=== PATIENT | female | born 1975 | race Caucasian/White ===

== ENCOUNTER 2017-03-07 19:54 | Emergency (ER) | payer BC ==
[2017-03-07] MEDS ORDERED: HYDROmorphone 0.5 MG/0.5 ML Syringe IVPUSH ONE (20:23)
[2017-03-07] MEDS ORDERED: Ondansetron 4 MG/2 ML SDV IVPUSH ONE (20:23)
[2017-03-07] MEDS ORDERED: Sodium Chloride 0.9% 1,000 ML IV SCH ×2 (20:30→22:00)
--- NOTE | 2017-03-07 20:41 | EDM.PDOC ---
ED HPI GENERAL MEDICAL PROBLEM - General Chief Complaint: Abdominal Pain Stated Complaint: ABDOMINAL PAIN Time Seen by Provider: 03/07/17 20:15 Source of Information: Reports: Patient, Family History Limitations: Reports: No Limitations - History of Present Illness INITIAL COMMENTS - FREE TEXT/NARRATIVE: 41-year-old female with abdominal pain for the past 4-1/2 to 5 hours. She had a Redd-en-Y surgery 5 years ago, has done well and felt fine until she developed gas pains around 3 PM this afternoon after having some coffee. She had a normal noon meal and had two bowel movements this morning. No fevers or chills, no significant nausea or vomiting and she has had no bowel movement since the pain started but has had some flatulence. She feels like her abdomen is becoming full or bloated. The pain is becoming very intense in her lower abdomen and more to the left, no radiation to the back. Onset: Gradual Duration: Hour(s): (Pain has been ongoing for 5 hours and worsening) Location: Reports: Abdomen Severity: Moderate Improves with: Reports: None Worsens with: Reports: Movement Associated Symptoms: Reports: No Other Symptoms abd pain Pain Score (Numeric/FACES): 8 - Related Data Allergies Allergy/AdvReac Type Severity Reaction Status Date / Time Penicillins Allergy Rash Verified 10/14/13 06:28 Home Meds: Home Meds Albuterol Sulfate [Albuterol Sulfate HFA] 2 puff IH Q6HR PRN 10/13/13 [History] EPINEPHrine [Epipen 2-Otis] 0.3 mg IM ASDIRECTED PRN 10/13/13 [History] Fluticasone Propionate [Flonase] 2 sprays NS BID 10/13/13 [History] Fluticasone/Salmeterol [Advair 250-50] 1 puff INH BID 10/13/13 [History] Montelukast Sodium 10 mg PO DAILY 10/13/13 [History] Acarbose [Precose] 25 mg PO TIDMEALS 03/07/17 [History] Cholecalciferol (Vitamin D3) [Vitamin D3] 5,000 unit PO DAILY 03/07/17 [History] Cyanocobalamin (Vitamin B-12) [Vitamin B-12] 1,000 mcg SL DAILY 03/07/17 [ History] FLUoxetine [PROzac] 40 mg PO DAILY 03/07/17 [History] Levothyroxine Sodium [Synthroid] 175 mcg PO BEDTIME 03/07/17 [History] Pediatric Multivit Comb No.136 [Children Multivitamin] 1 each PO BID 03/07/17 [ History] Vitamin B Complex [B Complex] 1 each PO DAILY 03/07/17 [History] buPROPion [Wellbutrin] 75 mg PO BID 03/07/17 [History] clonazePAM [Klonopin] 0.5 mg PO BID PRN 03/07/17 [History] Past Medical History HEENT History: Reports: Allergic Rhinitis 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: Psychiatric History: Reports: Anxiety, Depression Endocrine/Metabolic History: Reports: Hypothyroidism Oncologic (Cancer) History: Reports: Malignant Melanoma Dermatologic History: Reports: Psoriasis - Infectious Disease History Infectious Disease History: Reports: Chicken Pox, Shingles - Past Surgical History GI Surgical History: Reports: Bariatric Procedure Other GI Surgeries/Procedures: RNY ?2011 Female Surgical History: Reports: Section Social & Family History - Family History Family Medical History: Noncontributory - Tobacco Use Smoking Status *Q: Never Smoker Second Hand Smoke Exposure: No - Caffeine Use Caffeine Use: Reports: Coffee - Alcohol Use Days Per Week of Alcohol Use: 0 - Recreational Drug Use Recreational Drug Use: No ED ROS GENERAL - Review of Systems Review Of Systems: See Below Constitutional: Denies: Fever, Chills HEENT: Reports: No Symptoms Respiratory: Denies: Shortness of Breath, Cough Cardiovascular: Denies: Chest Pain GI/Abdominal: Reports: Abdominal Pain. Denies: Diarrhea, Nausea, Vomiting : Reports: No Symptoms Skin: Reports: No Symptoms Neurological: Reports: No Symptoms Psychiatric: Reports: Anxiety ED EXAM, GI/ABD - Physical Exam Exam: See Below Exam Limited By: No Limitations General Appearance: Alert, Anxious, Moderate Distress (Looks fairly uncomfortable) Eyes: Bilateral: Normal Appearance (No jaundice) Respiratory/Chest: No Respiratory Distress, Lungs Clear Cardiovascular: Regular Rate, Rhythm GI/Abdominal Exam: Normal Bowel Sounds, Soft, Tender (Very tender to palpation especially periumbilical and in the left lower quadrant, guarding is present with rebound tenderness) Extremities: Normal Inspection Neurological: Alert, Oriented Skin Exam: Warm, Dry Course - Vital Signs Last Recorded V/S: Last Vital Signs Temp 95.9 F 03/07/17 20:16 Pulse 66 03/07/17 21:16 Resp 18 03/07/17 21:16 BP 130/79 03/07/17 21:16 Pulse Ox 100 03/07/17 21:16 - Orders/Labs/Meds Orders: Active Orders 24 hr Category Date Time Status Abdomen Pelvis w Cont [CT] Stat Exams 03/07/17 21:08 Taken Labs: Laboratory Tests 03/07/17 03/07/17 Range/Units 20:37 20:37 WBC 6.3 (4.5-11.0) K/uL RBC 4.28 (3.30-5.50) M/uL Hgb 13.7 (12.0-15.0) g/dL Hct 39.4 (36.0-48.0) % MCV 92 (80-98) fL MCH 32 H (27-31) pg MCHC 35 (32-36) % Plt Count 244 (150-400) K/uL Neut % (Auto) 53 (36-66) % Lymph % (Auto) 37 (24-44) % Meagher % (Auto) 8 H (2-6) % Eos % (Auto) 1 L (2-4) % Baso % (Auto) 0 (0-1) % Sodium 138 L (140-148) mmol/L Potassium 3.5 L (3.6-5.2) mmol/L Chloride 102 (100-108) mmol/L Carbon Dioxide 26 (21-32) mmol/L Anion Gap 13.5 (5.0-14.0) mmol/L BUN 12 (7-18) mg/dL Creatinine 0.7 (0.6-1.0) mg/dL Est Cr Clr Drug Dosing 82.80 mL/min Estimated GFR (MDRD) > 60 (>60) Glucose 100 (74-106) mg/dL Calcium 9.3 (8.5-10.1) mg/dL Total Bilirubin 0.5 (0.2-1.0) mg/dL AST 33 (15-37) U/L ALT 61 (12-78) U/L Alkaline Phosphatase 109 (46-116) U/L Total Protein 6.7 (6.4-8.2) g/dL Albumin 3.8 (3.4-5.0) g/dL Globulin 2.9 (2.3-3.5) g/dL Albumin/Globulin Ratio 1.3 (1.2-2.2) Amylase 54 (25-115) U/L Meds: Medications Discontinued Medications Generic Name Dose Route Start Last Admin Trade Name Freq PRN Reason Stop Dose Admin Hydromorphone HCl 0.5 mg 03/07/17 20:23 03/07/17 20:31 Dilaudid IVPUSH 03/07/17 20:24 0.5 mg ONETIME ONE Administration Sodium Chloride 1,000 mls @ 1,000 mls/hr 03/07/17 20:30 03/07/17 20:31 Normal Saline IV 1,000 mls/hr ASDIRECTED MATTY Administration Sodium Chloride 80 mls @ 3 mls/sec 03/07/17 21:30 03/07/17 21:31 Normal Saline IV 3 mls/sec ASDIRECTED MATTY Administration Sodium Chloride 1,000 mls @ 500 mls/hr 03/07/17 22:00 03/07/17 21:59 Normal Saline IV 500 mls/hr ASDIRECTED MATTY Administration Iopamidol 100 ml 03/07/17 21:30 03/07/17 21:31 Isovue-300 (61%) IV 100 ml . DIRECTED MATTY Administration Ondansetron HCl 4 mg 03/07/17 20:23 03/07/17 20:31 Zofran IVPUSH 03/07/17 20:24 4 mg ONETIME ONE Administration Sodium Chloride 10 ml 03/07/17 21:16 03/07/17 21:31 Saline Flush FLUSH 10 ml ASDIRECTED PRN Administration Keep Vein Open - Re-Assessments/Exams Free Text/Narrative Re-Assessment/Exam: 03/07/17 20:40 An IV was started and the patient was given 0.5 mg of IV Dilaudid along with 4 mg of IV Zofran. A flat and upright abdominal x-ray will be obtained as well as a CBC, CMP, amylase and lipase. She likely will need a CT scan with the possibility of a bowel obstruction developing. 03/07/17 22:15 CT scan revealed a large amount of colonic stool and gas but no obstruction or acute findings. Labs were all reassuring and after the IV Dilaudid and Zofran she was asymptomatic. 03/07/17 22:28 After an additional hour her symptoms did not recur. She'll be discharged home with the advice of taking stool softeners or MiraLAX, drinking lots of water and returning if symptoms recur. Departure - Departure Time of Disposition: 22:43 Disposition: Home, Self-Care 01 Condition: Good Clinical Impression: Abdominal gas pain - Discharge Information Instructions: Abdominal Pain, Adult, [id number] Referrals: Justina Fair PA [Primary Care Provider] - Forms: ED Department Discharge Care Plan Goals: Stick with clear liquids tonight, MiraLAX or stool softeners may help and increase diet as tolerated. Return if symptoms recur and are persistent or you develop other concerns. - My Orders Last 24 Hours: My Active Orders 03/07/17 21:08 Abdomen Pelvis w Cont [CT] Stat - Assessment/Plan Last 24 Hours: My Active Orders 03/07/17 21:08 Abdomen Pelvis w Cont [CT] Stat
[2017-03-07] MEDS ORDERED: Sodium Chloride 0.9% 10 ML Syringe FLUSH PRN (21:16)
[2017-03-07] MEDS ORDERED: Iopamidol 612 MG/ML 100 ML Bottle IV SCH (21:30)
[2017-03-07] MEDS ORDERED: Sodium Chloride 0.9% 80 ML IV SCH (21:30)
== END 2017-03-07 22:45 | disposition home or self-care (01) ==
LOC: JP.ED 19:54
DX: R14.1 Gas pain (principal); F32.9 Major depressive disorder, single episode, unspecified; E03.9 Hypothyroidism, unspecified; Z79.899 Other long term (current) drug therapy; Z88.0 Allergy status to penicillin
CPT/HCPCS: 36415; 74177; 80053; 82150; 85025; 96361; 96372; 96374; 99284; J1170; J2405; J7030; J7040; J7050; Q9967

== ENCOUNTER 2020-09-24 19:41 | Emergency (ER) | payer BC ==
--- NOTE | 2020-09-24 20:15 | EDM.PDOC ---
ED HPI GENERAL MEDICAL PROBLEM - General Chief Complaint: Abdominal Pain Stated Complaint: ABD PAIN Time Seen by Provider: 09/24/20 20:15 Source of Information: Reports: Patient, Family, RN Notes Reviewed History Limitations: Reports: No Limitations - History of Present Illness INITIAL COMMENTS - FREE TEXT/NARRATIVE: Sravani presents today with acute onset abdominal pain at 1800 today. She states she took dicyclomine as directed without any improvement in pain. She states she did have some belching but this caused a lot of pain in her abdomen. She reports to regular BMs this morning. Middle Abdomen Pain Score (Numeric/FACES): 7 - Related Data Allergies Allergy/AdvReac Type Severity Reaction Status Date / Time Penicillins Allergy Rash Verified 09/24/20 19:56 Home Meds: Home Meds Albuterol Sulfate [Albuterol Sulfate HFA] 2 puff IH Q6HR PRN 10/13/13 [History] EPINEPHrine [Epipen 2-Otis] 0.3 mg IM ASDIRECTED PRN 10/13/13 [History] Fluticasone Propionate [Flonase] 2 sprays NS BID 10/13/13 [History] Fluticasone/Salmeterol [Advair 250-50] 1 puff INH BID 10/13/13 [History] Montelukast Sodium 10 mg PO DAILY 10/13/13 [History] Cholecalciferol (Vitamin D3) [Vitamin D3] 5,000 unit PO DAILY 03/07/17 [History] Cyanocobalamin (Vitamin B-12) [Vitamin B-12] 1,000 mcg SL DAILY 03/07/17 [History] FLUoxetine [PROzac] 40 mg PO DAILY 03/07/17 [History] Levothyroxine Sodium [Synthroid] 175 mcg PO BEDTIME 03/07/17 [History] Pediatric Multivitamin No.136 [Children Multivitamin] 1 each PO BID 03/07/17 [History] Vitamin B Complex [B Complex] 1 each PO DAILY 03/07/17 [History] buPROPion [Wellbutrin] 75 mg PO BID 03/07/17 [History] clonazePAM [Klonopin] 0.5 mg PO BID PRN 03/07/17 [History] Black Cohosh 540 mg PO DAILY 09/24/20 [History] Dulaglutide [Trulicity] 0.75 mg SQ ASDIRECTED 09/24/20 [History] Zinc 50 mg PO DAILY 09/24/20 [History] Past Medical History HEENT History: Reports: Allergic Rhinitis 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: Psychiatric History: Reports: Anxiety, Depression Endocrine/Metabolic History: Reports: Hypothyroidism Oncologic (Cancer) History: Reports: Malignant Melanoma Dermatologic History: Reports: Psoriasis - Infectious Disease History Infectious Disease History: Reports: Chicken Pox, Shingles - Past Surgical History GI Surgical History: Reports: Bariatric Procedure Other GI Surgeries/Procedures: RNY ?2011 Female Surgical History: Reports: Section Social & Family History - Family History Family Medical History: No Pertinent Family History - Tobacco Use Tobacco Use Status *Q: Never Tobacco User - Caffeine Use Caffeine Use: Reports: Coffee - Recreational Drug Use Recreational Drug Use: No ED ROS GENERAL - Review of Systems Review Of Systems: See Below Constitutional: Reports: No Symptoms HEENT: Reports: No Symptoms Respiratory: Reports: No Symptoms Cardiovascular: Reports: No Symptoms Endocrine: Reports: No Symptoms GI/Abdominal: Reports: Abdominal Pain, Decreased Appetite. Denies: Black Stool, Bloody Stool, Constipation, Diarrhea, Difficulty Swallowing, Distension, Flatus, Hematemesis, Hematochezia, Nausea, Vomiting : Reports: No Symptoms Musculoskeletal: Reports: No Symptoms Skin: Reports: No Symptoms Neurological: Reports: No Symptoms Psychiatric: Reports: No Symptoms Hematologic/Lymphatic: Reports: No Symptoms Immunologic: Reports: No Symptoms ED EXAM, GI/ABD - Physical Exam Exam: See Below Exam Limited By: No Limitations General Appearance: Alert, WD/WN, Moderate Distress Eyes: Bilateral: Normal Appearance Ears: Normal External Exam, Normal Canal, Hearing Grossly Normal, Normal TMs Nose: Normal Inspection, Normal Mucosa, No Blood Throat/Mouth: Normal Inspection, Normal Lips, Normal Teeth, Normal Gums, Normal Oropharynx, Normal Voice, No Airway Compromise Head: Atraumatic, Normocephalic Neck: Normal Inspection, Supple, Non-Tender, Full Range of Motion. No: Lymphadenopathy (R), Lymphadenopathy (L) Respiratory/Chest: No Respiratory Distress, Lungs Clear, Normal Breath Sounds, No Accessory Muscle Use, Chest Non-Tender. No: Crackles, Rales, Rhonchi, Wheezing Cardiovascular: Normal Peripheral Pulses, Regular Rate, Rhythm, No Edema, No Gallop, No Murmur, No Rub GI/Abdominal Exam: Soft, No Distention, No Mass, Guarding, Rebound, Tender. No: Rigid, Hernia Back Exam: Normal Inspection, Full Range of Motion. No: CVA Tenderness (R), CVA Tenderness (L) Extremities: Normal Inspection, Normal Range of Motion, Non-Tender, No Pedal Edema, Normal Capillary Refill Neurological: Alert, Oriented, Normal Cognition, Normal Gait, No Motor/Sensory Deficits Psychiatric: Normal Affect, Normal Mood Skin Exam: Warm, Dry, Intact, Normal Color, No Rash Lymphatic: No Adenopathy Course - Vital Signs Last Recorded V/S: Last Vital Signs Temp 36.2 C 09/24/20 20:06 Pulse 78 09/24/20 22:12 Resp 16 09/24/20 20:06 BP 96/59 L 09/24/20 22:12 Pulse Ox 98 09/24/20 22:12 - Orders/Labs/Meds Orders: Active Orders 24 hr Category Date Time Status Iopamidol [Isovue-300 (61%)] Med 09/24/20 21:00 Active 100 ml IV . DIRECTED Sodium Chloride 0.9% [Normal Saline] 1,000 ml Med 09/24/20 20:30 Active IV ASDIRECTED Sodium Chloride 0.9% [Normal Saline] 80 ml Med 09/24/20 21:00 Active IV ASDIRECTED Sodium Chloride 0.9% [Saline Flush] Med 09/24/20 20:25 Active 10 ml FLUSH ASDIRECTED PRN Saline Lock Insert [OM.PC] Routine Oth 09/24/20 20:25 Ordered Medication Orders Sodium Chloride (Normal Saline) 1,000 mls @ 500 mls/hr IV ASDIRECTED [facility] Last Admin: 09/24/20 20:35 Dose: 500 mls/hr Documented by: BLANCHE Sodium Chloride (Normal Saline) 80 mls @ 3 mls/sec IV ASDIRECTED MATTY Last Admin: 09/24/20 21:02 Dose: 3 mls/sec Documented by: HALEIGH Iopamidol (Iopamidol 612 Mg/Ml 100 Ml Bottle) 100 ml IV . DIRECTED MATTY Last Admin: 09/24/20 21:02 Dose: 100 ml Documented by: HALEIGH Sodium Chloride (Sodium Chloride 0.9% 10 Ml Syringe) 10 ml FLUSH ASDIRECTED PRN PRN Reason: Keep Vein Open Last Admin: 09/24/20 20:35 Dose: 10 ml Documented by: BLANCHE Labs: Laboratory Tests 09/24/20 09/24/20 09/24/20 Range/Units 20:25 20:25 20:25 WBC 5.6 (4.5-11.0) K/uL RBC 4.12 (3.30-5.50) M/uL Hgb 13.2 (12.0-15.0) g/dL Hct 38.8 (36.0-48.0) % MCV 94 (80-98) fL MCH 32 H (27-31) pg MCHC 34 (32-36) % Plt Count 238 (150-400) K/uL Neut % (Auto) 39.9 (36-66) % Lymph % (Auto) 49.1 H (24-44) % Mcminn % (Auto) 8.3 H (2-6) % Eos % (Auto) 2.3 (2-4) % Baso % (Auto) 0.4 (0-1) % Sodium 141 (140-148) mmol/L Potassium 4.0 (3.6-5.2) mmol/L Chloride 102 (100-108) mmol/L Carbon Dioxide 29 (21-32) mmol/L Anion Gap 10.3 (5.0-14.0) mmol/L BUN 20 H D (7-18) mg/dL Creatinine 0.8 (0.6-1.0) mg/dL Est Cr Clr Drug Dosing 70.24 mL/min Estimated GFR (MDRD) > 60 (>60) Glucose 88 (74-106) mg/dL Calcium 9.1 (8.5-10.1) mg/dL Total Bilirubin 0.2 D (0.2-1.0) mg/dL AST 42 H (15-37) U/L ALT 81 H (12-78) U/L Alkaline Phosphatase 128 H (46-116) U/L Total Protein 6.4 (6.4-8.2) g/dL Albumin 3.8 (3.4-5.0) g/dL Globulin 2.6 (2.3-3.5) g/dL Albumin/Globulin Ratio 1.5 (1.2-2.2) Urine Color Yellow (YELLOW) Urine Appearance Clear (CLEAR) Urine pH 7.5 (5.0-8.0) Ur Specific Stephens 1.025 (1.008-1.030) Urine Protein Negative (NEGATIVE) mg/dL Urine Glucose (UA) Negative (NEGATIVE) mg/dL Urine Ketones Trace H (NEGATIVE) mg/dL Urine Occult Blood Negative (NEGATIVE) Urine Nitrite Negative (NEGATIVE) Urine Bilirubin Negative (NEGATIVE) Urine Urobilinogen 0.2 (0.2-1.0) EU/dL Ur Leukocyte Esterase Negative (NEGATIVE) Urine RBC Not seen (0-5) Urine WBC 0-5 (0-5) Ur Epithelial Cells Rare Amorphous Sediment Not seen Urine Bacteria Few Urine Mucus Not seen Patient lab work reviewed, no acute findings, we will complete ABD/pelvis CT with IV contrast. Meds: Medications Generic Name Dose Route Start Last Admin Trade Name Jes PRN Reason Stop Dose Admin Sodium Chloride 1,000 mls @ 500 mls/hr 09/24/20 20:30 09/24/20 20:35 Normal Saline IV 500 mls/hr ASDIRECTED MATTY Administration Sodium Chloride 80 mls @ 3 mls/sec 09/24/20 21:00 09/24/20 21:02 Normal Saline IV 3 mls/sec ASDIRECTED MATTY Administration Iopamidol 100 ml 09/24/20 21:00 09/24/20 21:02 Iopamidol 612 Mg/Ml 100 Ml Bottle IV 100 ml . DIRECTED MATTY Administration Sodium Chloride 10 ml 09/24/20 20:25 09/24/20 20:35 Sodium Chloride 0.9% 10 Ml Syringe FLUSH 10 ml ASDIRECTED PRN Administration Keep Vein Open Discontinued Medications Generic Name Dose Route Start Last Admin Trade Name Jes PRN Reason Stop Dose Admin Hydromorphone HCl 0.5 mg 09/24/20 20:24 09/24/20 20:35 Hydromorphone 0.5 Mg/0.5 Ml Syringe IVPUSH 09/24/20 20:25 0.5 mg ONETIME ONE Administration Hydromorphone HCl 0.5 mg 09/24/20 20:25 09/24/20 22:04 Hydromorphone 0.5 Mg/0.5 Ml Syringe IVPUSH 09/24/20 20:26 Not Given ONETIME ONE Ondansetron HCl 4 mg 09/24/20 20:24 09/24/20 20:30 Ondansetron 4 Mg/2 Ml Sdv IVPUSH 09/24/20 20:25 4 mg ONETIME ONE Administration - Radiology Interpretation Free Text/Narrative:: CT of abdomen and pelvis with IV contrast shows: No acute intra-abdominal inflammatory process. Large amount of feces in the colon. IUD in uterus. Status post gastric bypass procedure. - Re-Assessments/Exams Free Text/Narrative Re-Assessment/Exam: 09/24/20 21:21 Patient resting on ER stretcher, reports pain is much better, no more cramping. CT results pending. 09/24/20 22:[address] results, patient currently denies pain. Advised to take stool softener to help with constipation. Follow up with primary as needed. Departure - Departure Time of Disposition: 22:17 Disposition: Home, Self-Care 01 Condition: Good Clinical Impression: Abdominal pain, Constipation - Discharge Information *PRESCRIPTION DRUG MONITORING PROGRAM REVIEWED*: Not Applicable *COPY OF PRESCRIPTION DRUG MONITORING REPORT IN PATIENT RIK: Not Applicable Instructions: Constipation, Adult, Abdominal Pain, Adult, [id number] Referrals: Justina Fair PA [Primary Care Provider] - Forms: ED Department Discharge Additional Instructions: You have been treated and evaluated for abdominal pain. Lab work does not show any acute process. CT of abdomen and pelvis with IV contrast shows: No acute intra-abdominal inflammatory process. Large amount of feces in the colon. IUD in uterus. Status post gastric bypass procedure. Stay hydrated Increase physical activity to help with constipation. May try stool softener to help with constipation. Continue dicyclomine as directed. Follow up with primary provider in 7 to 10 days for a recheck. Return for any worsening, issues or concerns Sepsis Event Note (ED) - Evaluation Sepsis Screening Result: No Definite Risk - Focused Exam Vital Signs: Vital Signs Temp Pulse Resp BP Pulse Ox 09/24/20 22:12 78 96/59 L 98 09/24/20 20:28 76 101/70 100 09/24/20 20:06 36.2 C 70 16 109/70 98 09/24/20 19:53 36.2 C 70 16 109/70 98 - My Orders Last 24 Hours: My Active Orders 09/24/20 20:25 Sodium Chloride 0.9% [Saline Flush] 10 ml FLUSH ASDIRECTED PRN Saline Lock Insert [OM.PC] Routine 09/24/20 20:30 Sodium Chloride 0.9% [Normal Saline] 1,000 ml IV ASDIRECTED 09/24/20 21:00 Iopamidol [Isovue-300 (61%)] 100 ml IV . DIRECTED Sodium Chloride 0.9% [Normal Saline] 80 ml IV ASDIRECTED - Assessment/Plan Last 24 Hours: My Active Orders 09/24/20 20:25 Sodium Chloride 0.9% [Saline Flush] 10 ml FLUSH ASDIRECTED PRN Saline Lock Insert [OM.PC] Routine 09/24/20 20:30 Sodium Chloride 0.9% [Normal Saline] 1,000 ml IV ASDIRECTED 09/24/20 21:00 Iopamidol [Isovue-300 (61%)] 100 ml IV . DIRECTED Sodium Chloride 0.9% [Normal Saline] 80 ml IV ASDIRECTED Assessment:: Abdominal pain Constipation Plan: Patient treated and evaluated for abdominal pain. Lab work does not show any acute process. CT of abdomen and pelvis with IV contrast shows: No acute intra-abdominal inflammatory process. Large amount of feces in the colon. IUD in uterus. Status post gastric bypass procedure. Stay hydrated Increase physical activity to help with constipation. May try stool softener to help with constipation. Continue dicyclomine as directed. Follow up with primary provider in 7 to 10 days for a recheck. Return for any worsening, issues or concerns
[2020-09-24] MEDS ORDERED: Ondansetron 4 MG/2 ML SDV IVPUSH ONE (20:24)
[2020-09-24] MEDS ORDERED: HYDROmorphone 0.5 MG/0.5 ML Syringe IVPUSH ONE ×2 (20:24→20:25)
[2020-09-24] MEDS ORDERED: Sodium Chloride 0.9% 10 ML Syringe FLUSH PRN (20:25)
[2020-09-24] MEDS ORDERED: Sodium Chloride 0.9% 1,000 ML IV SCH (20:30)
[2020-09-24] MEDS ORDERED: Iopamidol 612 MG/ML 100 ML Bottle IV SCH (21:00)
[2020-09-24] MEDS ORDERED: Sodium Chloride 0.9% 80 ML IV SCH (21:00)
--- NOTE | 2020-09-24 21:45 | CRLCT ---
For Patients: As a result of the Century Cures Act, medical imaging exams and procedure reports are released immediately into your electronic medical record. You may view this report before your referring provider. If you have questions, please contact your health care provider. INDICATION: Acute onset abdominal pain, history melanoma TECHNIQUE: CT abdomen and pelvis acquired with 100 cc Isovue-300 IV contrast. COMPARISON: March 07, 2017 FINDINGS: Lower chest: Unremarkable. Liver: Unremarkable. Spleen: Unremarkable. Pancreas: Unremarkable. Gallbladder and bile ducts: Unremarkable. Adrenal glands: Unremarkable. Kidneys: Unremarkable. GI tract: Status post gastric bypass procedure. Appendix is normal. Large amount of feces in the colon. Vascular structures: Unremarkable. Lymph nodes: Unremarkable. Miscellaneous: Unremarkable. No free air or significant free fluid. Pelvic Organs: IUD in the uterus. Bones: Unremarkable for age. IMPRESSION: No acute intra-abdominal inflammatory process identified. Large amount of feces in the colon. Status post gastric bypass procedure. IUD within the uterus. Please note that all CT scans at this facility use dose modulation, iterative reconstruction, and/or weight-based dosing when appropriate to reduce radiation dose to as low as reasonably achievable. Dictated by Raisa Stewart MD @ 09/24/2020 9:44:[address] Raisa Stewart @ Sep 24 2020 9:44PM
== END 2020-09-24 22:29 | disposition home or self-care (01) ==
LOC: JP.ED 19:41
DX: K59.00 Constipation, unspecified (principal); E03.9 Hypothyroidism, unspecified; Z79.899 Other long term (current) drug therapy; Z88.0 Allergy status to penicillin
CPT/HCPCS: 36415; 74177; 80053; 81001; 85025; 96374; 96375; 99284; J1170; J2405; J7030; Q9967

== ENCOUNTER → 2022-01-09 | Day surgery (SDC) | payer BC ==
[~2022-01-09] MED LIST: Midazolam 1 MG/ML 2 ML SDV ONE; Propofol 200 MG/20 ML SDV ONE; fentaNYL 100 MCG/2 ML SDV ONE
== END ==
LOC: JP.SDS 06:00
PROVIDERS: ATTEND Surgery
DX: K62.5 Hemorrhage of anus and rectum (principal); K64.9 Unspecified hemorrhoids; J45.909 Unspecified asthma, uncomplicated; Z88.0 Allergy status to penicillin
CPT/HCPCS: 45378; J2250; J2704; J3010

== ENCOUNTER 2024-04-13 12:01 | Emergency (ER) | payer BC ==
[2024-04-13] MEDS: Albuterol/Ipratropium 3.0-0.5 MG/3 ML Neb Soln NEB ONE (13:01)
[2024-04-13] MEDS ORDERED: Acetaminophen 1,000 MG in Premix Bag 1 BAG IV ONE (13:18)
[2024-04-13] MEDS: methylPREDNISolone Sodium Succinate 125 MG/2 ML SDV IM ONE (13:21)
[2024-04-13] MEDS: Ibuprofen 600 MG Tab PO ONE (13:25)
[2024-04-13] MEDS: Acetaminophen 500 MG Tab PO ONE (13:27)
[2024-04-13] MEDS: Levalbuterol HCl 1.25 MG/3 ML Neb NEB ONE (13:28)
[2024-04-13 13:29] LABS: BASOPHILS PERCENT AUTO 0.5 % (0.1-1.3); EOSINOPHILS ABSOLUTE AUTO 0.04 K/uL (0.00-0.40); HEMATOCRIT 34.3 % (34.3-46.0); IMMATURE GRAN PERCENT AUTO 0.2 % (0.0-0.7); LYMPHOCYTES ABSOLUTE AUTO 0.57 K/uL (0.8-3.3); LYMPHOCYTES PERCENT AUTO 13.8 % (11.4-47.7); MEAN CORPUSCULAR HEMOGLOBIN 32.5 pg (31.6-35.5); MONOCYTES ABSOLUTE AUTO 0.42 K/uL (0.20-0.90); MONOCYTES PERCENT AUTO 10.1 % (3.3-12.6); NEUTROPHILS ABSOLUTE AUTO 3.08 K/uL (1.0-7.6); NEUTROPHILS PERCENT AUTO 74.4 % (40.0-78.1); PLATELET COUNT,PLT 244 K/uL (130-375); RED BLOOD CELL COUNT 3.69 M/uL (3.77-5.24); WHITE BLOOD CELL COUNT,WBC 4.1 K/uL (3.2-11.0)
[2024-04-13 13:30] LABS: BASOPHILS ABSOLUTE AUTO 0.02 K/uL (0.00-0.10); IMMATURE GRAN ABSOLUTE AUTO 0.01 K/uL (0.00-0.23)
[2024-04-13 13:58] LABS: A/G RATIO 1.3 (1.2-2.2); ALANINE AMINOTRANSFERASE,ALT 100 U/L (12-78); ALBUMIN 3.8 g/dL (3.4-5.0); ALKALINE PHOSPHATASE 162 U/L (46-116); ASPARTATE AMNIOTRANSFERASE,AST 73 U/L (15-37); BILIRUBIN TOTAL 0.4 mg/dL (0.2-1.0); BLOOD UREA NITROGEN,BUN 12 mg/dL (7-18); CALCIUM 8.9 mg/dL (8.5-10.1); CARBON DIOXIDE,CO2 25 mmol/L (21-32); CHLORIDE,CL 103 mmol/L (100-108); EST CRCL DRUG DOSING (CG) 53.82 mL/min; ESTIMATED GFR 69 mL/min (>60); GLUCOSE RANDOM 114 mg/dL (74-106); POTASSIUM,K 3.7 mmol/L (3.6-5.2); PROTEIN TOTAL,TP 6.8 g/dL (6.4-8.2); SODIUM,NA 140 mmol/L (140-148)
[2024-04-13] MEDS: Sodium Chloride 0.9% 100 ML IV SCH (14:52)
[2024-04-13] MEDS: Iopamidol 755 Mg/ML 100 ML Bottle IV ONE (14:52)
== END 2024-04-13 16:15 | disposition home or self-care (01) ==
LOC: JP.ED 12:01
DX: J45.21 Mild intermittent asthma with (acute) exacerbation (principal); E03.9 Hypothyroidism, unspecified; Z88.0 Allergy status to penicillin; Z79.51 Long term (current) use of inhaled steroids; Z79.890 Hormone replacement therapy; Z79.899 Other long term (current) drug therapy
CPT/HCPCS: 36415; 71045; 71275; 80053; 85025; 85379; 87428; 94640; 96372; 99285; A9270; J2919; J7612; Q9967; 99284; J7620